=== PATIENT | female | born 1940 | race Caucasian/White ===

== ENCOUNTER 2017-10-09 12:31 | Emergency (ER) | payer MEDICARE, BC ==
[~2017-10-09] VITALS: Ht 154.9 cm; Wt 45.4 kg
[2017-10-09] MEDS ORDERED: HYDROcodone-ACET 5/325MG TAB PO ONE (14:00)
[2017-10-09 15:03] VITALS: BP 116/63
== END 2017-10-09 15:36 | disposition home or self-care (01) ==
LOC: ER 12:31
DX: S42.351A Displaced comminuted fracture of shaft of humerus, right arm, initial encounter for closed fracture (principal); J45.909 Unspecified asthma, uncomplicated; Z88.1 Allergy status to other antibiotic agents; Z88.5 Allergy status to narcotic agent; W18.39XA Other fall on same level, initial encounter; Y93.89 Activity, other specified; Y99.8 Other external cause status; Y92.098 Other place in other non-institutional residence as the place of occurrence of the external cause
CPT/HCPCS: 29105; 73030